=== PATIENT | male | born 1990 | race Caucasian/White ===

== ENCOUNTER 2016-08-27 22:11 | Emergency (ER) | payer OTHER ==
[~2016-08-27 22:11] MED LIST: CYCL10TA9 PO
[2016-08-27 22:34] VITALS: BP 132/77; PULSE 72; RESP 20; O2SAT 97
--- NOTE | 2016-08-27 23:50 | ED.REPORT ---
HPI-Rash / Abscess Date of Service August 27, 2016 ED Provider: Dr. Squires Pt is a healthy 26 year old male who presents to the ED with concerns for a rash about his back with pain radiating to his chest, onset 1 week. He reports no fever, cough, chills, nausea, vomiting or any other symptoms. Nursing Notes Stated Complaint: CHEST, ABD, BACK PAIN Chief Complaint: Skin Rash/Abscess Allergies: Coded Allergies: divalproex sodium (Verified Allergy, Unknown, Nausea, 08/27/16) Scheduled PRN Cyclobenzaprine (Cyclobenzaprine) 10 Mg Tablet 10 MG PO HS PRN PRN Spasm General Time Seen by MD: 23:50 Chief Complaint Rash Hx Obtained From: Patient Arrived By: Walk-in Onset Occurred: 4 days ago Symptom Duration: Since onset Location: : Chest Quality: Painful Severity: Current: Mild Severity: Maximum: Moderate Similar Sx Previous: Yes Past Medical History Past Medical History Reports Migraines Past Surgical History Reported surgery on head when 8 months old Smoking History Never Smoker Social History Alcohol Use: Denies alcohol use Drug Use: Denies drug use Other Social History: Good social support, Local resident Occupation lives with girlfriend, works as a [employer] 12/2015 Ambulatory Status Independent Review of Systems Constitutional: Denies: Chills, Fever, Malaise, Weakness - generalized Respiratory: Denies: Non-productive cough, Pleuritic pain, Shortness of breath , Wheezing Cardiovascular: Reports: Chest pain, Denies: Syncope GI: Denies: Abdominal pain, Constipation, Diarrhea, Nausea, Vomiting Musculoskeletal: Reports: Back pain Skin: Reports Rash Complete sys rev & neg: except as marked. Physical Exam Initial Vital Signs Vital Signs (First) Date Time Temp Pulse Resp B/P Pulse Ox O2 Delivery O2 Flow Rate FiO2 08/27/16 22:34 36.8 72 20 132/77 97 Room Air Initial VS: Reviewed Head / Eyes: Atraumatic, Normocephalic, PERRL ENT: Mucous membranes moist, Conjunctiva normal, No scleral icterus Neck: Supple, Non-tender, Full range of motion Respiratory: Breath sounds normal, Clear to auscultation, No respiratory distress Cardiovascular: Regular rate & rhythm, Heart sounds normal, Intact distal pulses Neurologic: Alert, Oriented, Nonfocal Psychiatric: Mood/affect normal, Behavior normal, Normal thought content General/Constitutional: Awake, Alert, Well appearing, Cooperative Skin: Atraumatic Rash / Lesion Notes: T11 distribution of unilateral vesicles Mid-thoracic dermatone Respiratory / Chest: Atraumatic, Breath sounds NL, Breath sounds = bilat, No respiratory distress, No rales, No rhonchi, No wheezing Chest Wall / Ribs: Positive: Chest tender upper R (chest wall is exquisitely tender and this seems to follow the dermatomal pattern.), Chondral cartil tender R Tender right posterior thoracic Interpretation & Diagnostics Lab Results Interpretation Test 08/28/16 00:12 ECG Interpretation ECG Interpretation: SR - 58 Time: 00:22 Interpreted by: ED physician Re-Eval/Medical Decision Med Decision/Clinical Course Healthy 26-year-old male with shingles in a lower thoracic dermatome that radiates around was chest. He has exquisitely tender chest wall as well. EKG is normal. I am going placement Valtrex and a short course of opiates for pain. Recommend close outpatient follow-up. UT and PE are highly unlikely. Source of Hx: Old records Re-Evaluation/Progress : Time of Eval: 00:43 Re-Evaluation/Progress Note: Pt is rechecked and informed of his lab results and the plan to discharge him at this time. He understands and agrees, all questions are addressed. Counseled Regarding: Diagnosis, Lab results, Need for follow-up, When/why to return to ED Discharge & Departure Impression: Primary Impression: Shingles Herpes zoster complications: without complications Qualified Code: B02.9 - Zoster without complications Disposition: Home Discharge Condition All VS Reviewed: Yes Condition: Stable Patient Instructions: Shingles (ED) Additional Instructions: Your EKG was normal. Take the Valtrex as prescribed. Increase your rest and hydration. Follow up with your primary care provider next week. Return to the emergency department with any new or worsening symptoms. Take [place] for break through pain. NOTE: this is a narcotic pain medication and may cause dizziness. Do not drink alcohol, drive or take ibuprofen while on this medication. Referrals: [facility] Scribe Attestation Portions of this note were transcribed by Emily Pool. I, Dr. Squires personally performed the history, physical exam and medical decision-making; I reviewed and confirmed the accuracy of the information in the transcribed note. Signed by: Candida Clarke, 08/27/2016 [Time]. copies to: [facility] Ken Squires DO August 27, 2016 23:50 GAMA POOL August 27, 2016 23:51
[2016-08-28] MEDS ORDERED: HYDROcodone-APAP 5-325 mg Tablet PO ONE
[2016-08-28 00:33] VITALS: BP 133/72; PULSE 72; RESP 20; O2SAT 99
== END 2016-08-28 00:34 | disposition home or self-care (01) ==
LOC: SED 22:13
DX: B02.9 Zoster without complications (principal); R07.89 Other chest pain; Z88.8 Allergy status to other drugs, medicaments and biological substances

== ENCOUNTER 2016-11-04 20:27 | Emergency (ER) | payer OTHER ==
[~2016-11-04] VITALS: Ht 175.3 cm; Wt 85.0 kg
[2016-11-04 20:33] VITALS: BP 127/78; PULSE 58; RESP 12; O2SAT 99
--- NOTE | 2016-11-04 21:40 | ED.REPORT ---
HPI-General Illness Date of Service Nov 04, 2016 ED Provider: Rudi Blank MD Pt is an otherwise healthy 26 year old male who presents to the ED complaining of right facial swelling onset 2 days ago. He c/o associated dental pain. He denies fever. The pt reports that he presented to urgent care today and was prescribed Amoxicillin. Pt took 1 dose of Amoxicillin prior to arrival, as well as hydrocodone without relief. Nursing Notes Stated Complaint: SWOLLEN RT CHEECK Chief Complaint: Dental Nursing Notes Reviewed: Yes Allergies: Coded Allergies: divalproex sodium (Verified Allergy, Unknown, Nausea, 08/27/16) Scheduled Clindamycin (Clindamycin) 300 Mg Capsule 300 MG PO QID Scheduled PRN Cyclobenzaprine (Cyclobenzaprine) 10 Mg Tablet 10 MG PO HS PRN PRN Spasm General Time Seen by MD: 21:39 Chief Complaint Other (Facial swelling) Hx Obtained From: Patient Arrived By: Walk-in Sudden in Onset?: No Onset Occurred: 2 days ago Symptom Duration: Since onset Location: : Mouth Quality: Painful Severity: Current: Moderate Severity: Maximum: Moderate Recent Healthcare: Recent doctor visit Similar Sx Previous: No Past Medical History Past Medical History Reports Migraines Denies: Congestive heart failure, Diabetes mellitus, Hypertension Past Surgical History Reported surgery on head when 8 months old Smoking History Never Smoker Social History Alcohol Use: Denies alcohol use Drug Use: Denies drug use Other Social History: Good social support, Local resident 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 Physical Exam Vital Signs Vital Signs Date Time Temp Pulse Resp B/P Pulse Ox O2 Delivery O2 Flow Rate FiO2 11/05/16 00:32 37.0 63 14 122/78 99 Room Air 11/04/16 20:33 37.0 58 12 127/78 99 Room Air Initial VS: Reviewed Respiratory: Breath sounds normal, Clear to auscultation, No respiratory distress Extremities: Vascular intact, Neuro intact Skin: Warm, Dry, No cyanosis Neurologic: Alert, Oriented, Nonfocal Psychiatric: Mood/affect normal, Behavior normal General/Constitutional: Awake, Alert ENT: Airway patent Impressive right facial swelling. Molar that is obviously carious. No pointing abscess. Neck: Atraumatic, Full range of motion No cervical abscess Cardiovascular: Heart rate NL, Regular rhythm, Heart sounds NL, No gallop, No murmurs Re-Eval/Medical Decision Med Decision/Clinical Course R facial swelling, poor dentition, non-toxic and not a Freddy's. Gave IV rocephin and clindamycin. will continue amoxicillin and add clindamycin. Plans to see dentist in 48 hrs. Source of Hx: Old records Time of Eval: 23:53 Re-Evaluation/Progress Note: Pt rechecked. Informed pt of plan for discharge. Pt understands and agrees with plan for discharge. F/U instructions and RTER warnings given. All questions addressed. Counseled Regarding: Diagnosis, Lab results, Need for follow-up, When/why to return to ED Discharge & Departure Primary Impression: Dental abscess Disposition: Home Discharge Condition All VS Reviewed: Yes Condition: Stable Patient Instructions: Dental Abscess (ED) Additional Instructions: ED evaluation included interview and exam. We have added clindamycin to the amoxicillin prevously prescribed. May use hydrocodone/apap (prescribed earlier ) for pain. Warm packs to face. Follow up with the your dentist- call sunday. Return to ED for fevers, shaking chills or expading red area on jaw line or under tongue. Referrals: [facility] Scribe Attestation Portions of this note were transcribed by Ariana Silverman. I, Dr. Blank personally performed the history, physical exam and medical decision-making; I reviewed and confirmed the accuracy of the information in the transcribed note. Signed by : Candida Mcintyre, 11/04/16. copies to: [facility] Rudi Blank MD Nov 04, 2016 21:40 Ariana Kaur Nov 04, 2016 22:20
[2016-11-04] MEDS ORDERED: cefTRIAXone Inj 2,000 MG in Dextrose 5% Minibag Plus 50 ML IV ONE (22:15)
[2016-11-04] MEDS ORDERED: Clindamycin Inj 900 MG in IV Premix 1 EACH IV ONE (22:15)
[2016-11-04] MEDS ORDERED: oxyCODONE-Acetamin 5-325 mg Tablet PO ONE (22:15)
[2016-11-04] MEDS ORDERED: CLIN-78 PO (23:51)
[2016-11-05 00:32] VITALS: BP 122/78; PULSE 63; RESP 14; O2SAT 99
== END 2016-11-05 00:33 | disposition home or self-care (01) ==
LOC: SED 20:27
DX: K04.7 Periapical abscess without sinus (principal); G43.909 Migraine, unspecified, not intractable, without status migrainosus; Z88.8 Allergy status to other drugs, medicaments and biological substances
CPT/HCPCS: 96365; 96366; 96368; 99284; J0696; J3490